=== PATIENT | female | born 1950 | race Two or more races ===

== ENCOUNTER → 2017-11-26 | Outpatient (CLI) | payer MEDICARE | END | disposition home or self-care (01) | LOC: US 11:39 | DX: I89.0 Lymphedema, not elsewhere classified (principal); M79.605 Pain in left leg | CPT/HCPCS: 93971 ==

== ENCOUNTER → 2018-01-14 | Outpatient (CLI) | payer MEDICARE | END | disposition home or self-care (01) | LOC: KCIC US 10:48 | DX: R10.84 Generalized abdominal pain (principal) | CPT/HCPCS: 76700 ==

== ENCOUNTER → 2019-09-03 | Outpatient (CLI) | payer MEDICARE ==
--- NOTE | 2019-09-04 16:18 | KCIC ---
BILATERAL SCREENING MAMMOGRAM, 3-D History: Routine screening. Comparison: Bilateral mammogram July 29, 2013 and 2010. Technique: MLO and CC digital tomosynthesis (3D) images obtained. Radiologist reviewed these images on dedicated workstation. Findings: Breast Tissue Density B : There are scattered areas of fibroglandular density. A few benign calcifications are noted bilaterally. Stable tiny mass in the lower inner left breast at mid depth, may be an intramammary lymph node. There are no dominant masses, suspicious microcalcifications, or architectural distortion. IMPRESSION: No mammographic evidence of malignancy. Recommend routine screening. BI-RADS category 2: Benign findings. The images were reviewed with computer-aided detection. Patient information is entered into reminder system with a target due date for the next screening mammogram. Mammography is the most sensitive method for finding small breast cancers, but it does not detect them all and is not a substitute for careful clinical examination. A negative mammogram does not negate a clinically suspicious finding and should not result in delay in biopsying a clinically suspicious abnormality. "Our facility is accredited by the [employer] Mammography Program." Electronically signed by: Anmol Brooks MD (09/04/2019 4:15 PM) [id number]
== END | disposition home or self-care (01) ==
LOC: KCIC MAMMO 12:47
PROVIDERS: ATTEND Internal Medicine
DX: Z12.31 Encounter for screening mammogram for malignant neoplasm of breast (principal); N64.89 Other specified disorders of breast; N63.24 Unspecified lump in the left breast, lower inner quadrant
CPT/HCPCS: 77063; 77067